=== PATIENT | female | born 1940 | race Caucasian/White ===

== ENCOUNTER → 2016-07-03 | Day surgery (SDC) | payer OTHER ==
[~2016-07-03] MED LIST: ACTOPLUS; ACTOPLUS MET 11 EACH PO; ALBUTEROL17 GM INH; ASPIRIN325 M1 PO; AVALIDE 300-12.1 TAB PO; AVANDAMET 2 MG/1 TA1 PO; AVAPRO300 M1 PO; BAYER CHEWABLE81 MG PO; BENTYL10 M1 PO; BIOTIN2500 MCG PO; BISACODYL5 M2 PO; CALCIUM CARBO1000 MG PO; CARDIZEM CD120 M1 PO; CARTIA XT ER; CARTIA XT120 MG PO; CELEBREX PO; CENTRUM SILVER1 EAC2 PO; COATED ASPIRIN325 M1 PO; COMBIVENT INH14.7 GM INH; DARVOCET-N 1001 TAB PO; FERRO-TIME325 MG PO; FERROUS GLUCON324 MG PO; FERROUS SULFATE PO; FLEXERIL PO; FLEXERIL10 MG PO; FUROSEMIDE40 MG PO; HYDROCHLOROTH12.5 M1 PO; HYDROCHLOROTH12.5 MG PO; KCL PO; KEFLEX500 M2 PO; LASIX PO; LIPITOR PO; MICROZIDE12.5 M1 PO; MIRALAX17 GM PO; MOBIC15 MG PO; MULTI VITAMIN1 EACH PO; MULTI-VITAMIN1 TAB PO; NORVASC PO; OSTEO BI-FLEX1 EAC5 PO; OXYCODONE-ACET1 EAC1 PO; PERCOCET5/325 PO; PHENERGAN25 MG PO; PROBIOTIC1 EAC7 PO; PROTONIX PO; PROVENTIL17 GM IH; SENNA-S TABLET1 EAC1 PO; SINGULAIR PO; SYMBICORT 160/4.6 G1 INH; SYMBICORT INH; TRAMADOL HCL50 M2 PO; TUMS500 MG PO; VIT B-12 PO; VIT E PO; ZOCOR10 MG PO; ZYRTEC PO; ZYRTEC10 M2 PO; [UNRECOGNIZED DRUG - OTHER]
--- NOTE | ~2016-07-03 | OR ---
Unit #: [id number] #: [id number] Patient: VERONIKA HERNANDEZ [id number] [address] [place], [place] [address] [id number] O MR#: [id number] NAME: VERONIKA HERNANDEZ ROOM: Date of Procedure: 07/03/2016 Admission Date: 07/03/2016 Surgeon: Kash Grossman M.D. : 1940 Attending Physician: Kash Grossman M.D. Primary Care Physician: Didier Lainez M.D. OPERATIVE REPORT PREOPERATIVE DIAGNOSES 1. Back pain. 2. Radiculopathy. 3. Spinal stenosis. 4. Degenerative disk disease, postlumbar fusion. POSTOPERATIVE DIAGNOSES 1. Back pain. 2. Radiculopathy. 3. Spinal stenosis. 4. Degenerative disk disease, postlumbar fusion. PROCEDURE PERFORMED Lumbar epidural steroid injection with intravenous sedation and fluoroscopic guidance for needle localization. INDICATIONS FOR PROCEDURE The patient is a 75-year-old female with worsening back pain radiating to bilateral lower extremities, the left more than hip to the right, it gets below the knee. She is status post L3, L4, L5 fusion 17 years ago, which did very well until just recently. She also recently had a cervical decompression due to significant symptomatic stenosis. She has improved with that, but still has left upper extremity weakness. Plan is for trial of epidural steroids typically likely a series of the pathology; however, insurance will allow single injection at the time. DESCRIPTION OF PROCEDURE The patient was placed in a seated position. Standard monitors were applied. 2 mg of Versed were given for sedation and anxiolysis, which were adequate. Vital signs remained stable. Sterile prep and drape then of the lumbar area was performed. The skin then at the L2-L3 level was localized with 1% lidocaine. An 18-gauge foodpanda / hellofoodtead needle was then advanced via loss of resistance technique and fluoroscopic guidance in toward the epidural space. After confirming proper positioning with fluoroscopy and radiographic contrast, 80 mg of Depo-Medrol and 4 mL of 0.125% bupivacaine were deposited. The patient tolerated the procedure otherwise well and was discharged to the recovery room in stable condition. Dictated by... Kash Grossman M.D. Unit #: [id number] #: [id number] Patient: VERONIKA HERNANDEZ PRABHU/kendal TD: 07/03/2016 23:22 JOB #: [id number] CC: Cody Vera M.D. OPERATIVE REPORT Page 1 of 1 X Kash Grossman MD X PROCEDURE OPERATIVE NOTE
== END | disposition home or self-care (01) ==
LOC: CCSC 08:41
DX: M51.16 Intervertebral disc disorders with radiculopathy, lumbar region (principal); M48.06 Spinal stenosis, lumbar region; Z98.1 Arthrodesis status
CPT/HCPCS: J1040; J2250

== ENCOUNTER → 2016-07-29 | Day surgery (SDC) | payer OTHER ==
--- NOTE | ~2016-07-29 | OR ---
Unit #: [id number] #: [id number] Patient: VERONIKA HERNANDEZ [id number] [address] [place], [place] [address] [id number] O MR#: [id number] NAME: VERONIKA HERNANDEZ. ROOM: Date of Procedure: 07/29/2016 Admission Date: 07/29/2016 Surgeon: Kash Grossman M.D. : 1940 Attending Physician: Kash Grossman M.D. Primary Care Physician: Didier Lainez M.D. OPERATIVE REPORT JOB NOTE: CC: [facility] PREOPERATIVE DIAGNOSES Postlumbar fusion, lumbar spinal stenosis, degenerative disk disease, back pain, radiculopathy. POSTOPERATIVE DIAGNOSES Postlumbar fusion, lumbar spinal stenosis, degenerative disk disease, back pain, radiculopathy. PROCEDURE PERFORMED Lumbar epidural steroid injection with intravenous sedation and fluoroscopic guidance for needle localization. INDICATIONS FOR PROCEDURE The patient is a 75-year-old female with return of back and lower extremity pains after having distant L3 through L5 fusion. She did very well with that surgery. Workup demonstrated significant adjacent level disease with severe spinal neuroforaminal stenosis. Initial epidural steroid injection 4 weeks ago resulted and maintained improvement in her leg pains. Back pain did fairly well for about 2 weeks, she had return of much of that pain at this point. Based on her good partial response, pathology, symptomatology, and available treatment options, we are going to proceed with a second injection today. I think based on improvement she has gotten, she likely would benefit from a third injection, we still to get that scheduled in a few weeks time. DESCRIPTION OF PROCEDURE The patient was placed in a seated position. Standard monitors were applied. Sterile prep and drape then of the lumbar area was performed. The skin then at the L2-L3 level was localized with 1% lidocaine. An 18-gauge BestSecret.comtead needle was then advanced via loss of resistance technique and fluoroscopic guidance in toward the epidural space. After confirming proper positioning with fluoroscopy and radiographic contrast, 80 mg of Depo-Medrol and 4 mL of 0.125% bupivacaine were deposited. The patient tolerated the procedure otherwise well and was discharged to recovery room in stable condition. Dictated by... Kash Grossman M.D. Unit #: [id number] #: [id number] Patient: VERONIKA HERNANDEZ PRABHU/kendal TD: 07/29/2016 23:34 JOB #: [id number] OPERATIVE REPORT Page 1 of 1 X Kash Grossman MD X PROCEDURE OPERATIVE NOTE
== END | disposition home or self-care (01) ==
LOC: CCSC 09:36
DX: M51.16 Intervertebral disc disorders with radiculopathy, lumbar region (principal); M48.06 Spinal stenosis, lumbar region; Z98.1 Arthrodesis status; Z88.0 Allergy status to penicillin; Z88.5 Allergy status to narcotic agent; Z88.8 Allergy status to other drugs, medicaments and biological substances; Z88.2 Allergy status to sulfonamides; Z79.4 Long term (current) use of insulin; Z79.899 Other long term (current) drug therapy
CPT/HCPCS: J1040; J2250; J2805

== ENCOUNTER → 2016-07-30 | Outpatient (CLI) | payer OTHER ==
--- NOTE | ~2016-07-30 | NM22 ---
[facility] A Service of [facility] RADIOLOGY TEXT RESULTS PATIENT: VERONIKA HERNANDEZ LOCATION: [facility] : 39 UNIT #: [id number] AGE: [address]: Emiliano Candelaria III, MD SEX: F ORDER DR: [id number] [facility] [address] [place], [place] [address] [id number] O MR#: [id number] Acc #: [id number] NAME: VERONIKA HERNANDEZ : 1940 SEX: F STUDY DATE/TIME: 07/30/2016 10:27 UNIT: [facility] ROOM: STUDY DESCRIPTION: DARREN Hepatobiliary [facility] Attending Physician: Emiliano Candelaria III, M.D. Referring Physician: Emiliano Candelaria III, M.D. Ordering Physician: Emiliano Candelaria III, M.D. Primary Care Physician: Didier Lainez M.D. MEDICAL IMAGING REPORT This report is preliminary unless electronic signature is present EXAM Radionuclide biliary scan, 07/30/2016. HISTORY Pain. Anemia, occasional nausea, vomiting, light bloating. Constipation, gassy, belch-y epigastric pain, right lower quadrant. Several months duration. 2 daughters and mother had gallbladder removed. Lap-band 2011. TECHNIQUE Following intravenous administration of 4.74 mCi technetium-99m Choletec, static images of the abdomen were obtained at 15-minute intervals over 60 minutes. Patient then received 2.4 mcg Kinevac by 30-minute intravenous infusion. Images obtained before and after Kinevac infusion. Region of interest drawn around stomach. Time-activity curve constructed and ejection fraction calculated. FINDINGS There is homogeneous distribution of radiotracer throughout the liver at 15 minutes post administration. Radiotracer seen in gallbladder, common bile duct and duodenum 15 minutes post administration. During initial hour of the examination, radiotracer continues to accumulate in gallbladder and, to a lesser extent, in small bowel. With the intravenous infusion of Kinevac, the 30-minute gallbladder ejection fraction is 90%. Normal is greater than or equal to 30%. IMPRESSION 1. Normal study. There is no evidence of acute cholecystitis or cystic duct obstruction. 2. Gallbladder ejection fraction with Kinevac stimulation is 90%. Normal greater than or equal to 30%. [facility] A Service of [facility] RADIOLOGY TEXT RESULTS PATIENT: VERONIKA HERNANDEZ LOCATION: [facility] ACC #: [id number] : 38 UNIT #: [id number] AGE: [address]: Emiliano Candelaria III, MD SEX: F ORDER DR: Dictated by... Cody Escudero M.D. THIS IS AN ELECTRONICALLY VERIFIED REPORT Cody Escudero M.D. at 07/30/2016 6:14 PM RASHID/shasta TD: 07/30/2016 15:52 JOB #: [id number] MEDICAL IMAGING REPORT Page 1 of 1 COPY
--- NOTE | ~2016-07-30 | US6 ---
[facility] A Service of [facility] RADIOLOGY TEXT RESULTS PATIENT: VERONIKA HERNANDEZ LOCATION: [facility] : 39 UNIT #: [id number] AGE: [address]: Emiliano Candelaria III, MD SEX: F ORDER DR: [id number] [facility] [address] [place], [place] [address] [id number] O MR#: [id number] Acc #: [id number] NAME: VERONIKA HERNANDEZ : 1940 SEX: F STUDY DATE/TIME: 07/30/2016 10:41 UNIT: [facility] ROOM: STUDY DESCRIPTION: US Abdominal Limited Attending Physician: Emiliano Candelaria III, M.D. Referring Physician: Emiliano Candelaria III, M.D. Ordering Physician: Emiliano Candelaria III, M.D. Primary Care Physician: Didier Lainez M.D. MEDICAL IMAGING REPORT This report is preliminary unless electronic signature is present EXAM Right upper quadrant ultrasound, 07/30. INDICATION Abdominal pain for several months. TECHNIQUE Sonographic evaluation is performed of the right upper quadrant in multiple planes. COMPARISON STUDIES No comparison. FINDINGS The pancreas is normal. Liver parenchyma is homogeneous and normal. No focal liver mass. Main portal vein is patent by Doppler. The right kidney is morphologically normal and nonobstructed. Gallbladder is normal. No gallstones are seen. There is no gallbladder wall thickening. Common duct is normal at about 3 mm internal diameter. IMPRESSION Normal right upper quadrant ultrasound. Dictated by... Jc Aragon Jr., M.D. THIS IS AN ELECTRONICALLY VERIFIED REPORT Jc Aragon Jr., M.D. at 07/30/2016 5:01 PM CARLITO/madhav TD: 07/30/2016 15:06 [facility] A Service of [facility] RADIOLOGY TEXT RESULTS PATIENT: VERONIKA HERNANDEZ LOCATION: [facility] : 38 UNIT #: [id number] AGE: [address]: Emiliano Candelaria III, MD SEX: F ORDER DR: JOB #: [id number] MEDICAL IMAGING REPORT Page 1 of 1 COPY
== END | disposition home or self-care (01) ==
LOC: CGUS 10:10
DX: R10.11 Right upper quadrant pain (principal)
CPT/HCPCS: 76705; 78227; A9537

== ENCOUNTER → 2016-11-25 | Day surgery (SDC) | payer OTHER ==
--- NOTE | ~2016-11-25 | OR ---
Unit #: [id number] #: [id number] Patient: VERONIKA HERNANDEZ [id number] [address] [address] [id number] O MR#: [id number] NAME: VERONIKA HERNANDEZ. ROOM: Date of Procedure: 11/25/2016 Admission Date: 11/25/2016 Surgeon: Kash Grossman M.D. : 1940 Attending Physician: Kash Grossman M.D. Referring Physician: Kash Grossman M.D. Primary Care Physician: Didier Lainez M.D. OPERATIVE REPORT PREOPERATIVE DIAGNOSES Radiculopathy, postfusion, degenerative disk disease. POSTOPERATIVE DIAGNOSES Radiculopathy, postfusion, degenerative disk disease. PROCEDURE PERFORMED Transforaminal epidural steroid injection of selective nerve root at L5-S1 on the right. Risks and benefits of all reviewed. The patient pay attention how she feels today during the time of local anesthetic is working and how she does after that with the steroid. DESCRIPTION OF PROCEDURE The patient was placed in a prone position. Standard monitors were applied. Sterile prep and drape of the lumbosacral area were performed. The skin then to the right of midline at the L5 level was localized with 1% lidocaine. A long 22-gauge Quincke point spinal was then advanced with biplanar fluoroscopic guidance to bring the needle tip to within the edge of the right L5-S1 neural foramina. Position was confirmed with the use of radiographic contrast. This was followed by a dose of 80 mg of Depo-Medrol and 1 mL of 0.25% bupivacaine. The patient tolerated the procedure otherwise well and was discharged to the recovery room in stable condition. Dictated by... Kash Grossman M.D. LHP/lucienl TD: 11/25/2016 13:32 JOB #: [id number] CC: [facility] Unit #: [id number] #: [id number] Patient: VERONIKA HERNANDEZ OPERATIVE REPORT Page 1 of 1 X Kash Grossman MD X PROCEDURE OPERATIVE NOTE
== END | disposition home or self-care (01) ==
LOC: CCSC 11:06
DX: M51.16 Intervertebral disc disorders with radiculopathy, lumbar region (principal); I10 Essential (primary) hypertension; E66.01 Morbid (severe) obesity due to excess calories; Z88.0 Allergy status to penicillin; Z88.2 Allergy status to sulfonamides; Z88.5 Allergy status to narcotic agent; Z88.8 Allergy status to other drugs, medicaments and biological substances; Z79.1 Long term (current) use of non-steroidal anti-inflammatories (NSAID); Z79.51 Long term (current) use of inhaled steroids; Z79.899 Other long term (current) drug therapy; Z98.1 Arthrodesis status
CPT/HCPCS: J1040; J2250